=== PATIENT | female | born 1970 | race Caucasian/White ===

== ENCOUNTER 2019-10-07 09:41 | Observation (INO) | payer MEDICARE ==
[~2019-10-07] VITALS: Ht 172.7 cm; Wt 84.1 kg
[2019-10-07 10:34] LABS: HEMATOCRIT 41.1 % (37.0-47.0); HEMOGLOBIN 13.4 g/dL (12.5-16.0); MEAN CELL VOLUME 96 fl (78-100); MEAN CORPUSCULAR HEMOGLOBIN 31 pg (27-31); MEAN CORPUSCULAR HGB CONC 33 g/dL (33-37); MEAN PLATELET VOLUME 10.3 fl (7.4-10.4); PLATELET COUNT 257 K/mm3 (130-400); RED CELL DISTRIBUTION WIDTH 12.3 % (11.5-14.5); WHITE BLOOD COUNT 14.5 K/mm3 (4.8-10.8)
[2019-10-07 10:58] LABS: ALBUMIN 4.4 g/dL (3.5-5.0)
[2019-10-07 11:00] LABS: CALCIUM 8.9 mg/dL (8.3-10.5)
[2019-10-07 11:03] LABS: NEUTROPHILS 90 % (42-75); TOTAL BILIRUBIN 0.4 mg/dL (0.2-1.2)
[2019-10-07 11:04] LABS: LYMPHOCYTE 7 % (20-51); MONOCYTE 3 % (3-10)
[2019-10-07 11:37] LABS: URINE APPEARANCE CLEAR; URINE COLOR YELLOW; URINE PROTEIN(semi-quant) TRACE mg/dL (NEGATIVE)
[2019-10-07 11:38] LABS: URINE BILIRUBIN NEGATIVE (NEGATIVE); URINE BLOOD NEGATIVE (NEGATIVE); URINE GLUCOSE NEGATIVE (NEGATIVE); URINE KETONE 2+ (NEGATIVE); URINE LEUKOCYTE ESTERASE NEGATIVE (NEGATIVE); URINE MUCUS PRESENT (NOT PRESENT); URINE NITRATE NEGATIVE (NEGATIVE); URINE UROBILINOGEN NORMAL (NORMAL)
[2019-10-07] MEDS ORDERED: PROTONIX TR40 M1 PO (12:31)
[2019-10-07] MEDS ORDERED: LEXAPRO20 M1 PO (12:32)
[2019-10-07] MEDS ORDERED: AMITIZA8 MCG PO (12:46)
[2019-10-07] MEDS ORDERED: LISINOPRIL10 MG PO (12:47)
[2019-10-07] MEDS ORDERED: OXYBUTYNIN CHLO10 MG PO (12:48)
[2019-10-07] MEDS ORDERED: DEPO-PROVE150 MG/1 M IM (12:49)
[2019-10-07 13:43] VITALS: BP 157/78
[2019-10-07 14:20] VITALS: BP 158/80
[2019-10-07 15:55] VITALS: BP 123/71
[2019-10-07 18:20] VITALS: BP 122/77
[2019-10-07 21:37] VITALS: BP 111/61
[2019-10-08 02:32] VITALS: BP 119/63
[2019-10-08 05:51] LABS: HEMATOCRIT 35.3 % (37.0-47.0); HEMOGLOBIN 11.2 g/dL (12.5-16.0); MEAN CELL VOLUME 98 fl (78-100); MEAN CORPUSCULAR HEMOGLOBIN 31 pg (27-31); MEAN CORPUSCULAR HGB CONC 32 g/dL (33-37); MEAN PLATELET VOLUME 10.5 fl (7.4-10.4); PLATELET COUNT 221 K/mm3 (130-400); RED BLOOD COUNT 3.62 M/mm3 (4.10-5.30); RED CELL DISTRIBUTION WIDTH 12.7 % (11.5-14.5); WHITE BLOOD COUNT 9.3 K/mm3 (4.8-10.8)
[2019-10-08 06:12] LABS: POTASSIUM 3.3 mmol/L (3.5-5.1)
[2019-10-08 06:13] LABS: CALCIUM 7.7 mg/dL (8.3-10.5)
[2019-10-08 06:22] VITALS: BP 116/61
[2019-10-08 07:40] LABS: LYMPHOCYTE 18 % (20-51); MONOCYTE 11 % (3-10); NEUTROPHILS 70 % (42-75)
[2019-10-08 09:40] VITALS: BP 149/77
[2019-10-08 14:42] VITALS: BP 120/82
[2019-10-08 17:18] VITALS: BP 150/87
[2019-10-08 22:04] VITALS: BP 114/57
[2019-10-09 01:56] VITALS: BP 145/72
[2019-10-09 05:43] VITALS: BP 129/75
[2019-10-09 07:53] LABS: POTASSIUM 3.6 mmol/L (3.5-5.1)
[2019-10-09 09:25] VITALS: BP 160/78
[2019-10-09] MEDS ORDERED: NORCO 325 MG-51 TA1 PO (10:19)
[2019-10-09] MEDS ORDERED: PHENERGAN 25 TA25 MG PO (10:19)
[2019-10-09] MEDS ORDERED: K-TAB20 MEQ PO (10:19)
== END 2019-10-09 11:35 | disposition home or self-care (01) ==
LOC: ED 09:41 → MED/SURG 12:49
PROVIDERS: Nurse Practitioner Family; ADMIT Physician Assistant
DX: K52.9 Noninfective gastroenteritis and colitis, unspecified (principal); E87.6 Hypokalemia; I49.9 Cardiac arrhythmia, unspecified; Z23 Encounter for immunization; I10 Essential (primary) hypertension; Z79.899 Other long term (current) drug therapy; K91.1 Postgastric surgery syndromes
CPT/HCPCS: G0378; J1650; J2270; J2550; J7030; Q9967